=== PATIENT | female | born 1950 | race Caucasian/White ===

== ENCOUNTER 2022-11-07 19:03 | Inpatient (IN) | payer MEDICARE, OTHER ==
[~2022-11-07] VITALS: Ht 167.6 cm; Wt 96.2 kg
[2022-11-07 20:40] VITALS: BP 119/59; TEMP 97.8; O2SAT 98
[2022-11-07] MEDS ORDERED: HYDR-4209 PO (22:04)
[2022-11-07] MEDS ORDERED: ACET-2154 PO (22:14)
[2022-11-07] MEDS ORDERED: ATOR10TA PO (22:14)
[2022-11-07] MEDS ORDERED: ESCI20TA PO (22:15)
[2022-11-07] MEDS ORDERED: ENOX40DI SQ (22:15)
[2022-11-07] MEDS ORDERED: PANT40TA2 PO (22:15)
[2022-11-07] MEDS ORDERED: MAG30ORA14 PO (22:15)
[2022-11-07] MEDS ORDERED: METO25TA3 PO (22:15)
[2022-11-07] MEDS ORDERED: ZINC113P3 TP (22:15)
[2022-11-07] MEDS ORDERED: CLON0.1T PO (22:15)
[2022-11-07] MEDS ORDERED: MAGN400O6 PO (22:15)
[2022-11-07] MEDS ORDERED: OXYCODONE HCL 5 MG TABLET PO PRN (22:15)
[2022-11-07] MEDS: OXYCODONE HCL 5 MG TABLET PO PRN (22:32)
[2022-11-07] MEDS ORDERED: ACETAMINOPHEN 325 MG TABLET-SA PATIENTS-PAIN ONLY PO PRN (23:30)
[2022-11-08 00:20] VITALS: O2SAT 97
[2022-11-08 04:00] VITALS: BP 141/73; TEMP 98.5; O2SAT 96
[2022-11-08 08:00] VITALS: BP 149/65; TEMP 98; O2SAT 99
[2022-11-08] MEDS: OXYCODONE HCL 5 MG TABLET PO PRN (08:43)
[2022-11-08] MEDS: ATORVASTATIN 10 MG TABLET PO SCH (08:44)
[2022-11-08] MEDS: CLONIDINE HCL 0.1 MG TABLET PO SCH (08:44)
[2022-11-08 08:45] LABS: BASOPHILS % (AUTO) 0.2 % (0.0-2.0); EOSINOPHILS # (AUTO) 0.2 K/uL (0.0-0.7); EOSINOPHILS % (AUTO) 1.8 % (0.0-7.0); HEMATOCRIT 33.3 % (31.2-41.9); LYMPHOCYTES # (AUTO) 2.9 K/uL (0.8-4.8); LYMPHOCYTES % (AUTO) 30.8 % (20.5-51.5); MEAN CORPUSCULAR HEMOGLOBIN 30.6 uug (24.7-32.8); MEAN CORPUSCULAR HGB CONC 33 g/dL (32.3-35.6); MEAN CORPUSCULAR VOLUME 92.4 fL (75.5-95.3); MONOCYTES # (AUTO) 0.8 K/uL (0.1-1.30); MONOCYTES % (AUTO) 8.4 % (0.0-11.0); NEUTROPHILS # (AUTO) 5.6 K/uL (1.8-8.9); NEUTROPHILS % (AUTO) 58.8 % (38.5-71.5); PLATELET COUNT (AUTO) 185 K/uL (179-408); RED BLOOD CELL COUNT(AUTO) 3.61 MIL/uL (3.63-4.92); RED CELL DISTRIBUTION WIDTH 13.6 % (12.3-17.7); WHITE BLOOD COUNT (AUTO) 9.5 K/uL (3.8-11.8)
[2022-11-08] MEDS: METOPROLOL SUCCINATE XL 25 MG TAB.SR.24H PO SCH (08:45)
[2022-11-08 08:53] LABS: CALCIUM 8.9 mg/dL (8.5-10.1); CARBON DIOXIDE 32 mmol/L (21-32); CHLORIDE 102 mmol/L (98-107); CREATININE 0.7 mg/dL (0.6-1.3); GLUCOSE 151 mg/dL (74-106); POTASSIUM 4.8 mmol/L (3.5-5.1); SODIUM SERUM 137 mmol/L (136-145); UREA NITROGEN, BLOOD 24 mg/dL (7-18)
[2022-11-08 08:59] LABS: ALANINE AMINOTRANSFERASE 18 U/L (14-59); ALBUMIN 2.5 g/dL (3.4-5.0); ALKALINE PHOSPHATASE 58 U/L (50-136); ASPARTATE AMINOTRANSFERASE < 5 U/L (15-37); BILIRUBIN,TOTAL 0.7 mg/dL (0.2-1.0); TOTAL PROTEIN, SERUM 6.4 g/dL (6.4-8.2)
[2022-11-08] MEDS ORDERED: PANTOPRAZOLE SODIUM 40 MG TABLET.DR PO SCH (09:00)
[2022-11-08 09:06] LABS: DIFFERENTIAL COMMENT 1
[2022-11-08] MEDS: ENOXAPARIN SODIUM 40 MG/0.4 ML DISP.SYRIN SQ SCH (09:29)
[2022-11-08] MEDS: ACETAMINOPHEN 325 MG TABLET PO PRN (12:36)
[2022-11-08] MEDS ORDERED: OXYCODONE HCL 5 MG TABLET PO ONE (13:00)
[2022-11-08 16:00] VITALS: BP 102/50; TEMP 98; O2SAT 96
[2022-11-08 16:06] VITALS: O2SAT 98
[2022-11-08 20:00] VITALS: BP 108/41; TEMP 98.9; O2SAT 95
[2022-11-08] MEDS: MORPHINE SULFATE SR 15 MG TABLET.SA PO SCH (20:36)
[2022-11-09] MEDS: ACETAMINOPHEN 325 MG TABLET PO PRN (04:46)
[2022-11-09] MEDS: PANTOPRAZOLE SODIUM 40 MG TABLET.DR PO SCH (06:49)
[2022-11-09 07:00] VITALS: BP 120/41; TEMP 98.4; O2SAT 96
[2022-11-09 08:00] VITALS: BP 125/58; TEMP 98.2; O2SAT 100
[2022-11-09] MEDS: MORPHINE SULFATE SR 15 MG TABLET.SA PO SCH ×2 (09:17→21:00)
[2022-11-09] MEDS: METOPROLOL SUCCINATE XL 25 MG TAB.SR.24H PO SCH (09:18)
[2022-11-09] MEDS: CLONIDINE HCL 0.1 MG TABLET PO SCH (09:18)
[2022-11-09] MEDS: ATORVASTATIN 10 MG TABLET PO SCH (09:20)
[2022-11-09] MEDS: ENOXAPARIN SODIUM 40 MG/0.4 ML DISP.SYRIN SQ SCH (09:23)
[2022-11-09] MEDS: ENSURE ENLIVE (VAN) 240 ML LIQUID PO SCH (09:24)
[2022-11-09] MEDS: ESCITALOPRAM OXALATE 10 MG TABLET PO SCH (09:26)
[2022-11-09] MEDS: MAGNESIUM HYDROXIDE 30 ML LIQUID UDC PO PRN (10:21)
[2022-11-09 16:00] VITALS: BP 139/52; TEMP 98.3; O2SAT 98
[2022-11-09 16:10] VITALS: O2SAT 97
[2022-11-09] MEDS: OXYCODONE HCL 5 MG TABLET PO PRN (16:13)
[2022-11-09 20:36] VITALS: BP 109/73; TEMP 99.1; O2SAT 93
[2022-11-10 05:58] VITALS: BP 110/76; TEMP 98.4; O2SAT 95
[2022-11-10] MEDS: PANTOPRAZOLE SODIUM 40 MG TABLET.DR PO SCH (06:00)
[2022-11-10 08:00] VITALS: BP 143/52; TEMP 98.1; O2SAT 96
[2022-11-10] MEDS: MORPHINE SULFATE SR 15 MG TABLET.SA PO SCH ×2 (09:35→20:48)
[2022-11-10] MEDS: ESCITALOPRAM OXALATE 10 MG TABLET PO SCH (09:36)
[2022-11-10] MEDS: ATORVASTATIN 10 MG TABLET PO SCH (09:37)
[2022-11-10] MEDS: METOPROLOL SUCCINATE XL 25 MG TAB.SR.24H PO SCH (09:44)
[2022-11-10] MEDS: CLONIDINE HCL 0.1 MG TABLET PO SCH (09:44)
[2022-11-10] MEDS: ENOXAPARIN SODIUM 40 MG/0.4 ML DISP.SYRIN SQ SCH (09:46)
[2022-11-10] MEDS: ENSURE ENLIVE (VAN) 240 ML LIQUID PO SCH (09:47)
[2022-11-10] MEDS: MAGNESIUM HYDROXIDE 30 ML LIQUID UDC PO PRN (12:21)
[2022-11-10 16:00] VITALS: BP 136/61; TEMP 97.8; O2SAT 96
[2022-11-10 20:32] VITALS: BP 120/46; TEMP 98.5; O2SAT 96
[2022-11-11 04:09] VITALS: BP 134/64; TEMP 98.1; O2SAT 96
[2022-11-11] MEDS: OXYCODONE HCL 5 MG TABLET PO PRN ×2 (05:53→12:17)
[2022-11-11] MEDS: PANTOPRAZOLE SODIUM 40 MG TABLET.DR PO SCH (07:19)
[2022-11-11 08:00] VITALS: BP 113/57; TEMP 97.4; O2SAT 97
[2022-11-11] MEDS: MORPHINE SULFATE SR 15 MG TABLET.SA PO SCH ×2 (10:03→21:15)
[2022-11-11] MEDS: ESCITALOPRAM OXALATE 10 MG TABLET PO SCH (10:03)
[2022-11-11] MEDS: ATORVASTATIN 10 MG TABLET PO SCH (10:04)
[2022-11-11] MEDS: METOPROLOL SUCCINATE XL 25 MG TAB.SR.24H PO SCH (10:04)
[2022-11-11] MEDS: CLONIDINE HCL 0.1 MG TABLET PO SCH (10:05)
[2022-11-11] MEDS: ENOXAPARIN SODIUM 40 MG/0.4 ML DISP.SYRIN SQ SCH (10:13)
[2022-11-11] MEDS: ENSURE ENLIVE (VAN) 240 ML LIQUID PO SCH (12:22)
[2022-11-11 16:30] VITALS: BP 105/52; TEMP 98.4; O2SAT 96
[2022-11-11 20:00] VITALS: BP 124/57; TEMP 97.9; O2SAT 95
[2022-11-12 04:00] VITALS: BP 123/55; TEMP 98.8; O2SAT 96
[2022-11-12] MEDS: PANTOPRAZOLE SODIUM 40 MG TABLET.DR PO SCH (06:50)
[2022-11-12 07:46] VITALS: BP 129/53; TEMP 98.7; O2SAT 96
[2022-11-12] MEDS: ATORVASTATIN 10 MG TABLET PO SCH (09:06)
[2022-11-12] MEDS: CLONIDINE HCL 0.1 MG TABLET PO SCH (09:06)
[2022-11-12] MEDS: ESCITALOPRAM OXALATE 10 MG TABLET PO SCH (09:07)
[2022-11-12] MEDS: MORPHINE SULFATE SR 15 MG TABLET.SA PO SCH ×2 (09:07→22:01)
[2022-11-12] MEDS: METOPROLOL SUCCINATE XL 25 MG TAB.SR.24H PO SCH (09:07)
[2022-11-12] MEDS: ENOXAPARIN SODIUM 40 MG/0.4 ML DISP.SYRIN SQ SCH (09:09)
[2022-11-12] MEDS: ENSURE ENLIVE (VAN) 240 ML LIQUID PO SCH (09:10)
[2022-11-12 15:20] VITALS: BP 139/62; TEMP 98.5; O2SAT 96
[2022-11-12] MEDS: MIRALAX 17 GM POWD.PACK PO SCH (19:00)
[2022-11-12 20:00] VITALS: BP 132/64; TEMP 98.5; O2SAT 98
[2022-11-13 05:19] VITALS: BP 127/59; TEMP 97.4
[2022-11-13] MEDS: PANTOPRAZOLE SODIUM 40 MG TABLET.DR PO SCH (06:11)
[2022-11-13 07:45] VITALS: BP 139/56; TEMP 98.1; O2SAT 95
[2022-11-13] MEDS ORDERED: MIRALAX 17 GM POWD.PACK PO SCH (09:00)
[2022-11-13] MEDS: ATORVASTATIN 10 MG TABLET PO SCH (09:20)
[2022-11-13] MEDS: METOPROLOL SUCCINATE XL 25 MG TAB.SR.24H PO SCH (09:21)
[2022-11-13] MEDS: MORPHINE SULFATE SR 15 MG TABLET.SA PO SCH ×2 (09:22→21:15)
[2022-11-13] MEDS: CLONIDINE HCL 0.1 MG TABLET PO SCH (09:22)
[2022-11-13] MEDS: ENOXAPARIN SODIUM 40 MG/0.4 ML DISP.SYRIN SQ SCH (09:26)
[2022-11-13] MEDS: MIRALAX 17 GM POWD.PACK PO SCH (09:27)
[2022-11-13] MEDS: ENSURE ENLIVE (VAN) 240 ML LIQUID PO SCH (09:27)
[2022-11-13] MEDS: OXYCODONE HCL 5 MG TABLET PO PRN (13:07)
[2022-11-13 16:00] VITALS: BP 116/54; TEMP 98.3; O2SAT 96
[2022-11-13] MEDS: MAGNESIUM HYDROXIDE 30 ML LIQUID UDC PO PRN (17:23)
[2022-11-13 19:45] VITALS: BP 110/49; TEMP 98.6; O2SAT 94
[2022-11-14 03:55] VITALS: BP 130/58; TEMP 97.6; O2SAT 96
[2022-11-14] MEDS: PANTOPRAZOLE SODIUM 40 MG TABLET.DR PO SCH (06:11)
[2022-11-14 08:00] VITALS: BP 140/62; TEMP 98.5; O2SAT 96
[2022-11-14 09:20] VITALS: BP 140/62; TEMP 98.5; O2SAT 96
[2022-11-14] MEDS: CLONIDINE HCL 0.1 MG TABLET PO SCH (09:42)
[2022-11-14] MEDS: METOPROLOL SUCCINATE XL 25 MG TAB.SR.24H PO SCH (09:43)
[2022-11-14] MEDS: ATORVASTATIN 10 MG TABLET PO SCH (09:43)
[2022-11-14] MEDS: MIRALAX 17 GM POWD.PACK PO SCH (09:44)
[2022-11-14] MEDS: ENOXAPARIN SODIUM 40 MG/0.4 ML DISP.SYRIN SQ SCH (09:44)
[2022-11-14] MEDS: ENSURE ENLIVE (VAN) 240 ML LIQUID PO SCH (09:49)
[2022-11-14] MEDS: MORPHINE SULFATE SR 15 MG TABLET.SA PO SCH ×2 (09:55→21:07)
[2022-11-14] MEDS: OXYCODONE HCL 5 MG TABLET PO PRN (14:32)
[2022-11-14 16:00] VITALS: BP 111/54; TEMP 99.1; O2SAT 96
[2022-11-14 20:00] VITALS: BP 106/65; TEMP 98.1; O2SAT 93
[2022-11-15] MEDS: OXYCODONE HCL 5 MG TABLET PO PRN (02:07)
[2022-11-15 04:00] VITALS: BP 118/50; TEMP 98.2; O2SAT 94
[2022-11-15] MEDS: PANTOPRAZOLE SODIUM 40 MG TABLET.DR PO SCH (06:54)
[2022-11-15 07:53] VITALS: BP 142/63; TEMP 97.6; O2SAT 97
[2022-11-15] MEDS: MIRALAX 17 GM POWD.PACK PO SCH (09:00)
[2022-11-15] MEDS: METOPROLOL SUCCINATE XL 25 MG TAB.SR.24H PO SCH (09:00)
[2022-11-15] MEDS: ATORVASTATIN 10 MG TABLET PO SCH (09:00)
[2022-11-15] MEDS: CLONIDINE HCL 0.1 MG TABLET PO SCH (09:00)
[2022-11-15] MEDS: ENSURE ENLIVE (VAN) 240 ML LIQUID PO SCH (09:01)
[2022-11-15] MEDS: ENOXAPARIN SODIUM 40 MG/0.4 ML DISP.SYRIN SQ SCH (09:02)
[2022-11-15] MEDS: MORPHINE SULFATE SR 15 MG TABLET.SA PO SCH ×2 (10:50→20:24)
[2022-11-15 15:11] VITALS: BP 119/59; TEMP 98.3; O2SAT 98
[2022-11-15 20:00] VITALS: BP 123/55; TEMP 98.5; O2SAT 95
[2022-11-16 04:00] VITALS: BP_SYST 104; BP_SYST 141; BP_DIAS 59; BP_DIAS 67; TEMP 98; TEMP 99.1; O2SAT 95; O2SAT 96
[2022-11-16] MEDS: PANTOPRAZOLE SODIUM 40 MG TABLET.DR PO SCH (06:18)
[2022-11-16] MEDS: OXYCODONE HCL 5 MG TABLET PO PRN (06:32)
[2022-11-16 07:54] VITALS: BP 132/63; TEMP 98.4; O2SAT 93
[2022-11-16] MEDS: ENSURE ENLIVE (VAN) 240 ML LIQUID PO SCH (08:00)
[2022-11-16] MEDS: MIRALAX 17 GM POWD.PACK PO SCH (08:31)
[2022-11-16] MEDS: CLONIDINE HCL 0.1 MG TABLET PO SCH (08:32)
[2022-11-16] MEDS: ATORVASTATIN 10 MG TABLET PO SCH (08:32)
[2022-11-16] MEDS: METOPROLOL SUCCINATE XL 25 MG TAB.SR.24H PO SCH (08:32)
[2022-11-16] MEDS: MORPHINE SULFATE SR 15 MG TABLET.SA PO SCH ×2 (08:34→20:32)
[2022-11-16] MEDS: ENOXAPARIN SODIUM 40 MG/0.4 ML DISP.SYRIN SQ SCH (08:37)
[2022-11-16 15:16] VITALS: BP 123/66; TEMP 98.2; O2SAT 95
[2022-11-16 20:00] VITALS: BP 136/58; TEMP 98.2; O2SAT 98
[2022-11-17] MEDS: OXYCODONE HCL 5 MG TABLET PO PRN (02:44)
[2022-11-17 04:00] VITALS: BP 138/54; TEMP 97.8; O2SAT 94
[2022-11-17] MEDS: PANTOPRAZOLE SODIUM 40 MG TABLET.DR PO SCH (06:11)
[2022-11-17 08:00] VITALS: BP 155/66; TEMP 98.5; O2SAT 99
[2022-11-17] MEDS: ATORVASTATIN 10 MG TABLET PO SCH (08:58)
[2022-11-17] MEDS: MIRALAX 17 GM POWD.PACK PO SCH (09:00)
[2022-11-17] MEDS: METOPROLOL SUCCINATE XL 25 MG TAB.SR.24H PO SCH (09:01)
[2022-11-17] MEDS: CLONIDINE HCL 0.1 MG TABLET PO SCH (09:02)
[2022-11-17] MEDS: ENSURE ENLIVE (VAN) 240 ML LIQUID PO SCH (09:03)
[2022-11-17] MEDS: MORPHINE SULFATE SR 15 MG TABLET.SA PO SCH (09:04)
[2022-11-17] MEDS: ENOXAPARIN SODIUM 40 MG/0.4 ML DISP.SYRIN SQ SCH (09:05)
[2022-11-17 16:00] VITALS: BP 148/65; TEMP 98.3; O2SAT 97
[2022-11-17 20:00] VITALS: BP 126/59; TEMP 98.2; O2SAT 73
[2022-11-18 04:00] VITALS: BP 145/67; TEMP 97.8; O2SAT 96
[2022-11-18 08:00] VITALS: BP 143/72; TEMP 97.2; O2SAT 96
[2022-11-18] MEDS: MORPHINE SULFATE SR 15 MG TABLET.SA PO SCH (08:29)
[2022-11-18] MEDS: ATORVASTATIN 10 MG TABLET PO SCH (08:29)
[2022-11-18] MEDS: MIRALAX 17 GM POWD.PACK PO SCH (08:30)
[2022-11-18] MEDS: METOPROLOL SUCCINATE XL 25 MG TAB.SR.24H PO SCH (08:30)
[2022-11-18] MEDS: ENOXAPARIN SODIUM 40 MG/0.4 ML DISP.SYRIN SQ SCH (08:34)
[2022-11-18] MEDS: CLONIDINE HCL 0.1 MG TABLET PO SCH (08:35)
[2022-11-18] MEDS: ENSURE ENLIVE (VAN) 240 ML LIQUID PO SCH (08:36)
[2022-11-18] MEDS: PANTOPRAZOLE SODIUM 40 MG TABLET.DR PO SCH (09:02)
[2022-11-18 09:26] VITALS: BP 153/72; TEMP 97; O2SAT 96
[2022-11-18] MEDS: OXYCODONE HCL 5 MG TABLET PO PRN ×2 (12:51→13:12)
[2022-11-18] MEDS ORDERED: LYTES/YERBA SANTA 240 ML BOTTLE MM PRN (14:30)
[2022-11-18] MEDS ORDERED: MAG HYDROX/AL HYDROX/SIMETH 30 ML LIQUID UDC PO PRN (15:45)
[2022-11-18 16:17] VITALS: BP 129/55; TEMP 97; O2SAT 98
[2022-11-18 20:00] VITALS: BP 127/74; TEMP 98.2; O2SAT 98
[2022-11-18] MEDS: ACETAMINOPHEN 325 MG TABLET PO PRN (21:38)
[2022-11-19] MEDS: OXYCODONE HCL 5 MG TABLET PO PRN ×2 (03:03→10:29)
[2022-11-19 04:38] VITALS: BP 118/56; TEMP 97.9; O2SAT 96
[2022-11-19] MEDS: PANTOPRAZOLE SODIUM 40 MG TABLET.DR PO SCH (06:35)
[2022-11-19 08:00] VITALS: BP 137/65; TEMP 98; O2SAT 97
[2022-11-19] MEDS: CLONIDINE HCL 0.1 MG TABLET PO SCH (08:53)
[2022-11-19] MEDS: METOPROLOL SUCCINATE XL 50 MG TAB.SR.24H PO SCH (08:54)
[2022-11-19] MEDS: ATORVASTATIN 10 MG TABLET PO SCH (08:54)
[2022-11-19] MEDS: ENOXAPARIN SODIUM 40 MG/0.4 ML DISP.SYRIN SQ SCH (08:55)
[2022-11-19] MEDS: ENSURE ENLIVE (VAN) 240 ML LIQUID PO SCH (09:01)
[2022-11-19 15:25] VITALS: BP 112/50; TEMP 98.2; O2SAT 100
[2022-11-19 20:00] VITALS: BP 112/49; TEMP 98.4; O2SAT 98
[2022-11-20 04:00] VITALS: BP 158/70; TEMP 97.7; O2SAT 96
[2022-11-20] MEDS: PANTOPRAZOLE SODIUM 40 MG TABLET.DR PO SCH (06:28)
[2022-11-20 07:13] LABS: BASOPHILS % (AUTO) 0.5 % (0.0-2.0); EOSINOPHILS # (AUTO) 0.2 K/uL (0.0-0.7); EOSINOPHILS % (AUTO) 1.8 % (0.0-7.0); HEMATOCRIT 31.4 % (31.2-41.9); HEMOGLOBIN 10.6 g/dL (10.9-14.3); LYMPHOCYTES # (AUTO) 3.5 K/uL (0.8-4.8); LYMPHOCYTES % (AUTO) 36.1 % (20.5-51.5); MEAN CORPUSCULAR HEMOGLOBIN 30.7 uug (24.7-32.8); MEAN CORPUSCULAR HGB CONC 34 g/dL (32.3-35.6); MEAN CORPUSCULAR VOLUME 91.4 fL (75.5-95.3); MONOCYTES # (AUTO) 0.5 K/uL (0.1-1.30); NEUTROPHILS # (AUTO) 5.5 K/uL (1.8-8.9); NEUTROPHILS % (AUTO) 56.6 % (38.5-71.5); PLATELET COUNT (AUTO) 474 K/uL (179-408); RED BLOOD CELL COUNT(AUTO) 3.44 MIL/uL (3.63-4.92); RED CELL DISTRIBUTION WIDTH 13.6 % (12.3-17.7); WHITE BLOOD COUNT (AUTO) 9.7 K/uL (3.8-11.8)
[2022-11-20 07:18] LABS: DIFFERENTIAL COMMENT 1
[2022-11-20 07:29] VITALS: BP 133/70; TEMP 98.2; O2SAT 96
[2022-11-20 07:47] LABS: CALCIUM 8.6 mg/dL (8.5-10.1); CREATININE 0.9 mg/dL (0.6-1.3); PHOSPHOROUS 3.9 mg/dL (2.5-4.9); POTASSIUM 4.6 mmol/L (3.5-5.1)
[2022-11-20 09:05] LABS: MAGNESIUM 2.3 mg/dL (1.8-2.4)
[2022-11-20 09:20] VITALS: BP 142/65; TEMP 98.8; O2SAT 96
[2022-11-20] MEDS: CLONIDINE HCL 0.1 MG TABLET PO SCH (09:31)
[2022-11-20] MEDS: METOPROLOL SUCCINATE XL 50 MG TAB.SR.24H PO SCH (09:32)
[2022-11-20] MEDS: ATORVASTATIN 10 MG TABLET PO SCH (09:32)
[2022-11-20] MEDS: ENOXAPARIN SODIUM 40 MG/0.4 ML DISP.SYRIN SQ SCH (09:34)
[2022-11-20] MEDS: ACETAMINOPHEN 325 MG TABLET PO PRN (09:37)
[2022-11-20] MEDS: ENSURE ENLIVE (VAN) 240 ML LIQUID PO SCH (09:44)
[2022-11-20 15:01] VITALS: BP 126/66; TEMP 98.4; O2SAT 97
[2022-11-21 05:37] VITALS: BP 125/77; TEMP 98.4; O2SAT 94
[2022-11-21] MEDS: PANTOPRAZOLE SODIUM 40 MG TABLET.DR PO SCH (06:17)
[2022-11-21 07:29] VITALS: BP 155/74; TEMP 98.4; O2SAT 96
[2022-11-21] MEDS: METOPROLOL SUCCINATE XL 50 MG TAB.SR.24H PO SCH (09:11)
[2022-11-21] MEDS: ATORVASTATIN 10 MG TABLET PO SCH (09:16)
[2022-11-21] MEDS: CLONIDINE HCL 0.1 MG TABLET PO SCH (09:17)
[2022-11-21] MEDS: OXYCODONE HCL 5 MG TABLET PO PRN (09:19)
[2022-11-21] MEDS: ENOXAPARIN SODIUM 40 MG/0.4 ML DISP.SYRIN SQ SCH (09:20)
[2022-11-21] MEDS: ENSURE ENLIVE (VAN) 240 ML LIQUID PO SCH (09:21)
[2022-11-21 15:00] VITALS: BP 101/53; TEMP 98.4; O2SAT 97
[2022-11-21 20:00] VITALS: BP 113/63; TEMP 99.1; O2SAT 97
[2022-11-22 04:20] VITALS: BP 144/71; TEMP 98.1; O2SAT 98
[2022-11-22] MEDS: PANTOPRAZOLE SODIUM 40 MG TABLET.DR PO SCH (06:12)
[2022-11-22 07:35] VITALS: BP 154/71; TEMP 98.8; O2SAT 95
[2022-11-22] MEDS: METOPROLOL SUCCINATE XL 50 MG TAB.SR.24H PO SCH (08:43)
[2022-11-22] MEDS: CLONIDINE HCL 0.1 MG TABLET PO SCH (08:44)
[2022-11-22] MEDS: ENOXAPARIN SODIUM 40 MG/0.4 ML DISP.SYRIN SQ SCH (08:47)
[2022-11-22] MEDS: ENSURE ENLIVE (VAN) 240 ML LIQUID PO SCH (08:49)
[2022-11-22] MEDS: ATORVASTATIN 10 MG TABLET PO SCH (08:49)
[2022-11-22] MEDS: OXYCODONE HCL 5 MG TABLET PO PRN (11:22)
[2022-11-22 15:42] VITALS: BP 102/45; TEMP 98.9; O2SAT 94
[2022-11-22 20:00] VITALS: BP 102/53; TEMP 98.7; O2SAT 95
[2022-11-23 04:00] VITALS: BP 108/61; TEMP 98.6; O2SAT 95
[2022-11-23] MEDS: PANTOPRAZOLE SODIUM 40 MG TABLET.DR PO SCH (06:14)
[2022-11-23 07:32] LABS: BASOPHILS # (AUTO) 0.1 K/UL (0.0-0.2); BASOPHILS % (AUTO) 0.7 % (0.0-2.0); EOSINOPHILS # (AUTO) 0.1 K/uL (0.0-0.7); EOSINOPHILS % (AUTO) 0.8 % (0.0-7.0); HEMATOCRIT 31.9 % (31.2-41.9); HEMOGLOBIN 10.8 g/dL (10.9-14.3); LYMPHOCYTES # (AUTO) 3.5 K/uL (0.8-4.8); LYMPHOCYTES % (AUTO) 38.8 % (20.5-51.5); MEAN CORPUSCULAR HEMOGLOBIN 30.8 uug (24.7-32.8); MEAN CORPUSCULAR HGB CONC 34 g/dL (32.3-35.6); MEAN CORPUSCULAR VOLUME 91.4 fL (75.5-95.3); MONOCYTES # (AUTO) 0.5 K/uL (0.1-1.30); MONOCYTES % (AUTO) 5.6 % (0.0-11.0); NEUTROPHILS # (AUTO) 4.9 K/uL (1.8-8.9); NEUTROPHILS % (AUTO) 54.1 % (38.5-71.5); PLATELET COUNT (AUTO) 405 K/uL (179-408); RED CELL DISTRIBUTION WIDTH 13.9 % (12.3-17.7)
[2022-11-23 07:44] LABS: DIFFERENTIAL COMMENT 1
[2022-11-23 07:57] LABS: THYROID STIMULATING HORMONE 1.313 mIU/mL (0.358-3.740)
[2022-11-23 08:04] VITALS: BP 166/80; TEMP 98.9; O2SAT 97
[2022-11-23 08:16] LABS: ALANINE AMINOTRANSFERASE 34 U/L (14-59); ALBUMIN 2.7 g/dL (3.4-5.0); ALKALINE PHOSPHATASE 128 U/L (50-136); ASPARTATE AMINOTRANSFERASE 13 U/L (15-37); BILIRUBIN,TOTAL 0.4 mg/dL (0.2-1.0); CALCIUM 8.4 mg/dL (8.5-10.1); CARBON DIOXIDE 30 mmol/L (21-32); CHLORIDE 106 mmol/L (98-107); CHOLESTEROL 135 mg/dL (<200); CREATININE 0.8 mg/dL (0.6-1.3); GLUCOSE 119 mg/dL (74-106); HDL CHOLESTEROL 50 mg/dL (40-60); MAGNESIUM 2.4 mg/dL (1.8-2.4); PHOSPHOROUS 3.5 mg/dL (2.5-4.9); POTASSIUM 4.4 mmol/L (3.5-5.1); SODIUM SERUM 142 mmol/L (136-145); TOTAL PROTEIN, SERUM 6.7 g/dL (6.4-8.2); TRIGLYCERIDES 96 MG/DL (30-150); UREA NITROGEN, BLOOD 24 mg/dL (7-18)
[2022-11-23] MEDS: METOPROLOL SUCCINATE XL 50 MG TAB.SR.24H PO SCH (09:24)
[2022-11-23 09:25] VITALS: BP 166/80
[2022-11-23] MEDS: ATORVASTATIN 10 MG TABLET PO SCH (09:25)
[2022-11-23] MEDS: CLONIDINE HCL 0.1 MG TABLET PO SCH (09:25)
[2022-11-23] MEDS: ENSURE ENLIVE (VAN) 240 ML LIQUID PO SCH (09:25)
[2022-11-23] MEDS: OXYCODONE HCL 5 MG TABLET PO PRN (09:26)
[2022-11-23] MEDS: ACETAMINOPHEN 325 MG TABLET PO PRN (11:53)
== END 2022-11-23 12:00 | disposition home health service (06) | DRG 561 ==
LOC: EDBD 20:40
PROVIDERS: ADMIT Physical Medicine & Rehabilitation Pain Medicine; ATTEND Physical Medicine & Rehabilitation Pain Medicine
DX: S72.002D Fracture of unspecified part of neck of left femur, subsequent encounter for closed fracture with routine healing (principal); W01.0XXD Fall on same level from slipping, tripping and stumbling without subsequent striking against object, subsequent encounter; K21.9 Gastro-esophageal reflux disease without esophagitis; E66.9 Obesity, unspecified; Z68.34 Body mass index [BMI] 34.0-34.9, adult; E78.5 Hyperlipidemia, unspecified; I10 Essential (primary) hypertension; I25.10 Atherosclerotic heart disease of native coronary artery without angina pectoris; R73.03 Prediabetes; Z90.710 Acquired absence of both cervix and uterus; R79.89 Other specified abnormal findings of blood chemistry; F32.A Depression, unspecified; Z96.642 Presence of left artificial hip joint
CPT/HCPCS: 36415; 73501; 73502; 74018; 83735; 84100; 84443; 85025; 97535-GO-CO; A9155; J1650